=== PATIENT | female | born 1965 | race African-American/Black ===

== ENCOUNTER 2019-05-29 08:58 | Inpatient (IN) ==
[2019-05-29] MEDS: NS 1,000 ML IV SCH ×3 (09:00→12:32)
[2019-05-29] MEDS ORDERED: ASPIRIN PO ONE (09:10)
[2019-05-29] MEDS ORDERED: NS 1,000 ML IV ONE (09:15)
[2019-05-29 09:20] LABS: BE -28.8 mmoll (-3.0-3.0); BLOOD TYPE ARTERIAL; METHB 0.9 % (0.0-1.5); O2(CT) 20.8 mL/dL (15.0-23.0); PO2(98.6) 143 mmHg (60-100); SAMPLE BLOOD; SAO2 99.5 % (95.0-100.0); THB 15.1 g/dL (11.5-17.4)
[2019-05-29 09:24] LABS: BASO# 0.01 X1000 (0.0-0.2); BASO% 0.1 % (0.0-0.8); EOS# 0.01 X1000 (0.0-0.7); EOS% 0.1 % (0.0-10.0); HEMATOCRIT 45.7 % (37.0-47.0); HEMOGLOBIN 14.3 g/dL (12.0-16.0); IMM GRAN# 0.09 X1000 (0.0-0.04); IMM GRAN% 0.6 % (0.0-0.5); LYMPH# 1.53 X1000 (1.2-3.4); MCH 22.8 PG (27-31); MCHC 31.3 g/dL (33-37); MCV 72.8 FL (81-99); MONO# 0.93 X1000 (0.11-0.59); MONO% 6.7 % (1.7-9.3); MPV 10.5 FL (7.4-10.4); NEUT# 11.32 X1000 (1.4-6.5); NEUT% 81.5 % (42.2-75.2); PLT 476 X1000 (130-400); RBC 6.28 XMIL (4.2-5.4); RDW 14.1 % (11.5-14.5); WBC 13.89 X1000 (4.8-10.8)
--- NOTE | 2019-05-29 09:25 | PROVIDER DOCUMENTATION ---
HPI-General Adult - General Chief Complaint: Chest Pain Stated Complaint: SOB/N/V Time Seen by Provider: 05/29/19 09:10 Source: patient Allergies/Adverse Reactions: Patient Allergies Allergy/AdvReac Type Severity Reaction Status Date / Time No Known Allergies Allergy Verified 05/29/19 09:49 Home Medications: Home Medication List Medication Instructions Recorded Confirmed Last Taken Type NK [No Home Medications] 05/29/19 05/29/19 Unknown History - History of Present Illness -Gen Adult Nature of Presenting Problems: 53yof present to ER with c/o high blood sugar, nv, SOB, and chest pain. Pt is a diabetic and states her blood sugar has been elevated. Pt poor historian. Location of Pain/Injury: reports: chest Pain Radiation: reports: no radiation Quality of Pain: reports: aching Onset/Duration: reports: last night Modifying Factors: improves with: nothing Associated Symptoms: reports: chest pain, nausea, shortness of breath, vomiting. denies: diaphoresis, diarrhea, dizziness, fever/chills, genitourinary problems - Diabetes Related Context Context: reports: high blood sugar, prior DKA hospitalization Review of Systems - Adult - REVIEW OF SYSTEMS - ADULT Constitutional: reports: no symptoms reported. denies: chills, fever Eyes: reports: no symptoms reported Ears, Nose, Mouth & Throat: reports: no symptoms reported Cardiovascular: reports: see HPI, chest pain Respiratory: reports: see HPI, shortness of breath Gastrointestinal: reports: see HPI, nausea, vomiting. denies: abdominal pain, diarrhea Genitourinary: reports: no symptoms reported. denies: dysuria, frequency Musculoskeletal: reports: no symptoms reported Integumentary: reports: no symptoms reported Neurological: reports: no symptoms reported Psychiatric: reports: no symptoms reported Endocrine: reports: no symptoms reported Hematologic/Lymphatic: reports: no symptoms reported Allergic/Immunologic: reports: no symptoms reported All Other Systems: Reviewed and Negative Past History - Adult - PAST MEDICAL HISTORY-ADULT Review of Records: reports: Old Records Reviewed, Nursing Assessment Review, Medications Reviewed, Social history reviewed & non-contributory. Major Childhood Illnesses: reports: denies history Cardiovascular: reports: HTN, hyperlipidemia Respiratory: reports: denies history Gastrointestinal: reports: denies history Obstetrical/Gynecological: reports: denies history Genitourinary: reports: denies history Musculoskeletal: reports: denies history Neurological: reports: denies history Endocrine/Immune: reports: Diabetes Other Conditions: reports: denies history - FAMILY HISTORY Family History: reviewed, not pertinent Physical Exam-General - PHYSICAL EXAM-ADULT Initial Vital Signs Reviewed: Yes - CONSTITUTIONAL General Appearance: alert, moderate distress, other (fruity acetone odor) - EYES Eyes: pink conjunctivae - HEAD, EARS, NOSE, MOUTH & THROAT HENMT: other (dry mucous membranes). negative: angioedema - NECK Neck: full range of motion, supple, normal inspection - RESPIRATORY Respiratory: lungs clear, normal breath sounds, increased rate (kussmaul). negative: crackles, rales, rhonchi, stridor, wheezing - CARDIOVASCULAR Cardiovascular: tachycardia - GASTROINTESTINAL (ABDOMEN) Abdominal Exam: normal bowel sounds, non tender, soft. negative: distended, guarding, rigid, rebound - LYMPHATIC Lymphatic: no adenopathy - MUSCULOSKELETAL Back Exam: normal inspection, no vertebral tenderness Extremity: normal range of motion, normal inspection, no pedal edema, normal capillary refill - SKIN Integumentary: normal color, warm/dry. negative: diaphoresis, jaundice - PSYCHIATRIC Psych/Mental Status: oriented x 3, anxious Progress - PLAN OF CARE/RESULTS Progress/Plan/Lab Results: Vital Signs - 8 hr 05/29/19 09:04 Pulse Rate 117 H Respiratory Rate 24 Blood Pressure 145/106 O2 Sat by Pulse Oximetry 99 Laboratory Results - last 24 hr 05/29/19 09:11 POC Glucose 500 H Orders Category Date Time Status Cardiac Monitoring DIRECTED Care 05/29/19 09:10 Active FSBS [Finger Stick Blood Sugar (ED)] DIRECTED Care 05/29/19 09:12 Active FSBS/Accucheck Result Q1H Care 05/29/19 09:15 Ordered Zaragoza Cath Insertion ORDERED Care 05/29/19 09:12 Active Oxygen Therapy- ED Nursing DIRECTED Care 05/29/19 09:10 Active Saline Loc NOW Care 05/29/19 09:10 Active Vital Signs Order Q1H Care 05/29/19 09:15 Ordered CHEST-2 VIEWS [RAD] Stat Exams 05/29/19 09:10 Ordered ABG [RESP] Routine Lab 05/29/19 09:13 Ordered ABG [RESP] Stat Lab 05/29/19 09:15 Ordered ACETONE SERUM [CHEM] Stat Lab 05/29/19 09:15 Uncollected CBC WITH ELECTRONIC DIFF [HEME] Stat Lab 05/29/19 09:15 Ordered CK PROFILE [SP CHEM] Stat Lab 05/29/19 09:15 Ordered COMPREHENSIVE METABOLIC PANEL [CHEM] Stat Lab 05/29/19 09:15 Ordered LACTATE, PLASMA [CHEM] Stat Lab 05/29/19 09:15 Uncollected MAGNESIUM [CHEM] Stat Lab 05/29/19 09:15 Uncollected PHOSPHORUS [CHEM] Stat Lab 05/29/19 09:15 Uncollected PRO B-NATRIURETIC PEPTIDE Stat Lab 05/29/19 09:15 Ordered PROTIME WITH INR [COAG] Stat Lab 05/29/19 09:15 Ordered PTT [COAG] Stat Lab 05/29/19 09:15 Ordered TROPONIN T Stat Lab 05/29/19 09:15 Ordered UA [URINALYSIS W/POSS RFLX CULT] [URINALYSIS] Stat Lab 05/29/19 09:13 Uncollected URINALYSIS [URINALYSIS] Stat Lab 05/29/19 09:15 Uncollected URINE DRUG SCREEN PL Stat Lab 05/29/19 09:15 Uncollected 0.9% Sodium Chloride Inj [Ns] 1,000 ml Med 05/29/19 09:15 Ordered IV 500 mls/hr Aspirin Med 05/29/19 09:10 Discontinued 325 mg PO NOW ONE Ns 1000 ml IV Bolus X1 Med 05/29/19 09:15 Ordered 0.9% Sodium Chloride Inj [Ns] 1,000 ml IV 999 mls/hr CP/SOB/Palp >45 yrs of Age Stat Oth 05/29/19 09:10 Ordered EKG [EKG] Stat Ther 05/29/19 09:10 Ordered Result Diagrams: 05/29/19 09:10 05/29/19 09:10 - REASSESSMENT Reassessment #1 Time Reassessed: 09:25 (reviewed ABGs with Dr Moses. Does not suggest any new orders at this time, suggests bolusing with fluids until CMP is back) - XRAY 1 XRAY Study: Chest Impression: See EMR Report ( CHEST-PORTABLE - 05/29/2019 INDICATION: cp COMPARISON: None FINDINGS: The lungs are normally expanded and clear. Heart size and mediastinal contours are normal. No pneumothorax or pleural effusion. IMPRESSION: Negative exam. Electronically signed by Leandro Knutson 05/29/2019 10:00 AM) - CONSULTS/PCP/HOSPITALIST Notification #1 *Consult/PCP/Hospitalist*: Dr Mancia Time Discussed: 10:23 Consult Disposition: Will see in ED, Admit Departure - Departure Date of Disposition Decision: 05/29/19 Time of Disposition Decision: 10:23 DIAGNOSIS: DKA (diabetic ketoacidoses) Disposition: ADMITTED INPATIENT 09 Certified Medical Emergency: Emergent Condition: Fair Referrals and Follow-Ups: None,PCP [Primary Care Provider] - - Critical Care Note This patient required my direct & personal management of CC.: Yes Total Time (mins): 40 Critical Care Statement: This patient required my direct personal management to treat or rule out processes, the absence of which, could potentiallly result in sudden, clinically significant life or limb threatening deterioration. Attestation - Physician/ REBEKAH Attestation Patient care was provided by Advanced Practice Provider:: Yes Advanced Practice Provider:: Lupis Dillon Advanced Practice Provider documentation review:: The Mid-level provider documentation, treatment plan and medical decision making was reviewed by the physician who agrees with all treatment and medical decision making by the MLP. The physician spent face to face time with patient:: Yes Advanced Practice Provider documentation review:: Supervising physician onsite and consulted in the evaluation and care of this patient. The physician did have a face to face encounter with the patient. - HEART Score HEART Score: History: Slightly Suspicious HEART Score: ECG: Normal HEART Score: Age: 45-65 Years HEART Score: Risk Factors for Atherosclerotic Disease: > or = 3 Risk Factors or History of Atherosclerotic Disease HEART Score: Troponin: < or = Normal Limit Total HEART Score:: 3
[2019-05-29 09:31] LABS: URINE SOURCE CATH
[2019-05-29 09:34] LABS: BILIRUBIN URINE NEGATIVE (NEGATIVE); BLOOD URINE SMALL (NEGATIVE); COLOR YELLOW; GLUCOSE URINE >1000 mg/dL (NEGATIVE); KETONE URINE >150 mg/dL (NEGATIVE); LEUKOCYTES URINE NEGATIVE (NEGATIVE); NITRITE URINE NEGATIVE (NEGATIVE); PROTEIN URINE 70 mg/dL (NEGATIVE); SP GRAVITY URINE 1.025; TURBIDITY URINE CLEAR (CLEAR); UR EPITHELIAL CELLS <10 /HPF (<10); URINE BACTERIA NEGATIVE /HPF; URINE RBC <10 /HPF (<10); URINE WBC <10 /HPF (<10); UROBILINOGEN URINE NORMAL (NORMAL)
[2019-05-29 09:38] LABS: INR 1.15; PROTIME 15.3 Seconds (11.0-16.0)
[2019-05-29 09:39] LABS: ALBUMIN 4.5 g/dL (3.5-5.0); CALCIUM 9.6 mg/dL (8.8-10.2); CREATININE 1.4 mg/dL (0.5-0.9); POTASSIUM 5.2 mmol/L (3.5-5.1); PTT 28.1 Seconds (22.3-41.8); TOTAL BILIRUBIN 0.3 mg/dL (0.20-1.00); TOTAL PROTEIN 7.9 g/dL (6.3-8.3)
[2019-05-29 09:42] LABS: ALLEN TEST YES; MODALITY ROOM AIR
--- NOTE | 2019-05-29 09:44 | EKG Report ---
Test Performed on : 05/29/2019 09:10:20 AM Test Reason : SOB/C/P Blood Pressure : / mmHG Vent. Rate : 116 BPM Atrial Rate : 116 BPM P-R Int : 140 ms QRS Dur : 076 ms QT Int : 364 ms P-R-T Axes : 078 -26 035 degrees QTc Int : 505 ms Sinus tachycardia. Possible Left atrial enlargement Inferior infarct , age undetermined Abnormal ECG No previous ECGs available Unconfirmed Result
[2019-05-29 09:49] LABS: UR AMPHETAMINES QUAL NONE DETECTED (NONE DETECT); UR BARBITUATES QUAL NONE DETECTED (NONE DETECT); UR BENZODIAZEPIN QUAL NONE DETECTED (NONE DETECT); UR CANNABINOIDS QUAL NONE DETECTED (NONE DETECT); UR COCAINE QUAL NONE DETECTED (NONE DETECT); UR METHADONE QUAL NONE DETECTED (NONE DETECT); UR METHAMPHETAMINE QUAL NONE DETECTED (NONE DETECT); UR OPIATES QUAL NONE DETECTED (NONE DETECT); UR OXYCODONE QUAL NONE DETECTED (NONE DETECT); UR PCP QUAL NONE DETECTED (NONE DETECT); UR PROPOXYPHENE QUAL NONE DETECTED (NONE DETECT); UR TCA QUAL NONE DETECTED (NONE DETECT)
[2019-05-29 09:54] LABS: ACETONE SERUM LARGE (NEGATIVE)
[2019-05-29 09:55] LABS: MAGNESIUM 2.6 mg/dL (1.5-2.7); PHOSPHORUS 6.5 mg/dL (2.7-4.5)
[2019-05-29] MEDS ORDERED: HUMULIN R (PARKWAY) 100 UNITS in NS 100 ML IV SCH (10:00)
--- NOTE | 2019-05-29 10:02 | Diag Imaging Result Doc PS360 ---
CHEST-PORTABLE - 05/29/2019 INDICATION: cp COMPARISON: None FINDINGS: The lungs are normally expanded and clear. Heart size and mediastinal contours are normal. No pneumothorax or pleural effusion. IMPRESSION: Negative exam. Electronically signed by Leandro Knutson 05/29/2019 10:00 AM
[2019-05-29] MEDS ORDERED: SODIUM BICARBONATE 8.4% IV PUSH ONE (10:12)
[2019-05-29 10:22] LABS: PCO2(98.6) 7 mmHg (35-45); pH(98.6) 6.95 (7.35-7.45)
[2019-05-29 10:23] LABS: HCO3-(ACT) 2.4 mmoll (20.0-26.0)
[2019-05-29] MEDS ORDERED: ZOFRAN PO PRN (12:03)
[2019-05-29] MEDS ORDERED: COMPAZINE PO PRN (12:03)
[2019-05-29] MEDS ORDERED: HUMULIN R 100 UNIT in NS 100 ML IV SCH (12:03)
[2019-05-29] MEDS ORDERED: POTASSIUM CHLORIDE 20 MEQ/SWI 20 MEQ/100 ML IVPB IV PRN (12:03)
[2019-05-29] MEDS ORDERED: POTASSIUM CHLORIDE 40 MEQ/SWI 40 MEQ/100 ML IVPB IV PRN (12:03)
[2019-05-29] MEDS ORDERED: TYLENOL PR PRN (12:03)
[2019-05-29] MEDS ORDERED: D50W SYRINGE IV PRN (12:03)
[2019-05-29] MEDS ORDERED: TYLENOL PO PRN (12:03)
[2019-05-29] MEDS ORDERED: COMPAZINE PR PRN (12:03)
[2019-05-29] MEDS ORDERED: COMPAZINE IV PRN (12:03)
[2019-05-29] MEDS ORDERED: SODIUM BICARBONATE 8.4% 100 MEQ in STERILE WATER INJ. 500 ML IV PRN (12:03)
[2019-05-29] MEDS ORDERED: MAGNESIUM SULFATE 2 GM/S.W.I. 2 GM/50 ML IVPB IV PRN (12:03)
--- NOTE | 2019-05-29 13:02 | HISTORY AND PHYSICAL ---
PRIMARY CARE PROVIDER: GABRIELLE Tidwell. CHIEF COMPLAINT: "I feel SOB" HISTORY OF PRESENT ILLNESS: Ms. Matias is a 53-year-old, female who carries a past medical history of diabetes mellitus type 2, who had previously been on, I believe, Januvia and metformin, hypertension, hyperlipidemia. However, she has not taken any home medications in quite some time, at least in over a year. She does not take her blood sugars at home. She states that she lost over 100 pounds so she thought she was not a diabetic anymore. She is complaining of some shortness of breath. She does have Kussmaul breathing. Workup in the ED revealed she was in DKA and will be initiated on the DKA protocol, and will be transferred to [facility] ICU. Her infectious workup has been negative so far. Ms. Matias is not forthcoming with much information and feels like we are being very mean to her with our questioning and educating on importance of staying of top of her diabetes. PAST MEDICAL HISTORY: 1. Diabetes mellitus. 2. Hypertension. 3. Hyperlipidemia. PAST SURGICAL HISTORY: Denies. FAMILY HISTORY: Reviewed and noncontributory. ALLERGIES: No known drug allergies. HOME MEDICATIONS: Currently not taking any. REVIEW OF SYSTEMS: Hard to obtain secondary to the patient is not very forthcoming with information. She does have fruity-smelling breath. She does have Kussmaul breathing but really denies any other symptoms. She just keeps saying that she does not feel bad, that she is just short of breath. Intentional 100 pound weight loss. PHYSICAL EXAMINATION: VITAL SIGNS: Temperature is 97.6 degrees, heart rate 103, respirations 20, blood pressure 145/106, O2 is 99% on room air. GENERAL: Ms. Matias is a 53-year-old, female who is lying in the bed with Kussmaul respirations. HEENT: Atraumatic, normocephalic. PERRL. Mucous membranes are extremely dry. NECK: Supple. Trachea midline. CARDIOVASCULAR: S1, S2 appreciated. No murmurs, gallops, or rubs noted. RESPIRATORY: Lungs sound clear bilaterally. GI: Flat, soft, nontender, nondistended. Positive bowel sounds in 4 quadrants. EXTREMITIES: Lower extremities negative for edema. Bilateral pedal pulses are palpable. NEUROLOGIC: The patient is awake. She is alert. She is answering some questions. She is moving all her extremities. She is talking to her family member at the bedside. However, again, she is being difficult in answering all of our questions. She is definitely a poor historian. DIAGNOSTIC DATA: EKG, sinus tachycardia with possible left atrial enlargement, 116 beats per minute. Chest x-ray was a negative exam. LABORATORY DATA: White count 13, hemoglobin and hematocrit 14 and 45, platelet count is 476,000. Initial ABG, pH was 6.95, pCO2 of 7, PO2 of 143, bicarb of 2.4, base excess of - 28.8, O2 of 99.5. Sodium of 131, potassium of 5.2, BUN of 31, creatinine 1.4, blood glucose of 682, phosphorus of 6.5, magnesium of 2.6. Alkaline phosphatase of 111. Troponin less than 0.010. Plasma lactate of 5.1. Urinalysis negative for bacteria, negative for nitrites, small blood, greater than 1000 glucose, 70 protein. Acetone level is large. Toxicology screen negative. ASSESSMENT AND PLAN: 1. Diabetic ketoacidosis in a patient with known diabetes mellitus. She reports she has had admissions before in [place] for diabetic ketoacidosis. She reports a weight loss of over 100 pounds and thought she was not diabetic anymore. She does not check her blood sugars at home. She has not taken her metformin or Januvia for months now. She has been initiated on the diabetic ketoacidosis protocol and will be transferred from [place] emergency department to [facility] intensive care unit to continue with further treatment and care. 2. Hypertension. We will continue to monitor. 3. Hyperlipidemia. 4. Leukocytosis, likely reactive. Infectious workup has turned up negative so far. 5. FLORESITA secondary to dehydration. Further recommendations to follow Physicians evaluation, labs, and diagnostics. Dictated by GABRIELLE Rodriguez for Seven Duff MD cc: MD Tamiko Reyes [facility]
--- NOTE | 2019-05-29 13:23 | HISTORY AND PHYSICAL ---
ADDENDUM: HISTORY OF PRESENT ILLNESS: The patient is a 53-year-old, extremely intentionally noncompliant individual, who notes that she has not been taking her blood sugar medications for several months, does not check her blood sugars at home. States she has been short of breath. Denies any fevers or chills. PAST MEDICAL HISTORY: Significant for hypertension, diabetes, hyperlipidemia. HOSPITAL COURSE: The patient was seen in the ER with elevated blood pressure of 145/106, tachycardic at 117, tachypneic at 24. She is acidotic with a bicarb at 3. Sodium 131, potassium 5.2, and glucose at 682. When attempting to discuss with Ms. Matias, the importance of blood sugar control, she simply continues to remark, it is not a big deal, she has been sicker than this in the past. She also notes that I should not be so mean as to tell her that uncontrolled diabetes leads to chronic intractable pain in your feet and legs, kidney failure, blindness, and ultimately an early . Regardless, we are going to place her in the hospital ICU, insulin drip. We are going to give her some bicarb currently, place her on IV fluids, and will follow. cc: Seven Duff MD
[2019-05-29] MEDS: ZOFRAN IV PRN (13:41)
[2019-05-29 13:51] LABS: CALCIUM 8.2 mg/dL (8.8-10.2); CREATININE 1.2 mg/dL (0.5-0.9); PHOSPHORUS 2.6 mg/dL (2.7-4.5); POTASSIUM 4.9 mmol/L (3.5-5.1)
[2019-05-29] MEDS: POTASSIUM CHLORIDE 10% LIQUID PO PRN ×2 (14:05→16:53)
[2019-05-29 14:50] LABS: ALLEN TEST YES; BE -21.4 mmoll (-3.0-3.0); BLOOD TYPE ARTERIAL; HCO3-(ACT) 8.2 mmoll (20.0-26.0); METHB 0.7 % (0.0-1.5); O2(CT) 17.7 mL/dL (15.0-23.0); O2HB 97.1 % (95.0-99.0); PO2(98.6) 105 mmHg (60-100); SAMPLE BLOOD; SAO2 99.2 % (95.0-100.0); THB 12.9 g/dL (11.5-17.4)
[2019-05-29 14:51] LABS: MODALITY ROOM AIR; PCO2(98.6) 14 mmHg (35-45); pH(98.6) 7.16 (7.35-7.45)
[2019-05-29 16:33] LABS: ESTIMATED GFR > 60
[2019-05-29 16:39] LABS: AGAP 25; BUN 24 mg/dL (8-22); CHLORIDE 103 mmol/L (98-107); COSMO 279; GLUCOSE 218 mg/dL (70-104); PHOSPHORUS 1.3 mg/dL (2.7-4.5); POTASSIUM 4.3 mmol/L (3.5-5.1); SODIUM 134 mmol/L (136-145); TCO2 6 mmol/L (25-35)
[2019-05-29] MEDS: SODIUM CHLORIDE 0.9% INJ SCH (16:53)
[2019-05-29] MEDS: PROTONIX IV SCH (16:53)
[2019-05-29] MEDS: D5 NS 1,000 ML IV PRN (16:58)
[2019-05-29] MEDS: HEPARIN SUBQ SCH (20:02)
[2019-05-29 20:48] LABS: AGAP 19; BUN 18 mg/dL (8-22); CALCIUM 7.8 mg/dL (8.8-10.2); CHLORIDE 105 mmol/L (98-107); COSMO 277; CREATININE 0.9 mg/dL (0.5-0.9); ESTIMATED GFR > 60; GLUCOSE 222 mg/dL (70-104); POTASSIUM 4.5 mmol/L (3.5-5.1); SODIUM 134 mmol/L (136-145); TCO2 10 mmol/L (25-35)
[2019-05-29 20:49] LABS: PHOSPHORUS 0.7 mg/dL (2.7-4.5)
[2019-05-29] MEDS ORDERED: SODIUM PHOSPHATE 30 MMOL in NS 250 ML IV ONE (21:11)
[2019-05-29] MEDS ORDERED: BLISTEX MEDICATED BERRY LIP BALM TOP PRN (21:18)
[2019-05-29] MEDS: SODIUM PHOSPHATE 30 MMOL in D5W 250 ML IV PRN (21:22)
[2019-05-30] MEDS: D5 NS 1,000 ML IV PRN ×4 (01:11→22:55)
[2019-05-30 01:33] LABS: AGAP 15; BUN 16 mg/dL (8-22); CHLORIDE 106 mmol/L (98-107); COSMO 273; ESTIMATED GFR > 60; GLUCOSE 229 mg/dL (70-104); MAGNESIUM 1.8 mg/dL (1.5-2.7); PHOSPHORUS 1.4 mg/dL (2.7-4.5); POTASSIUM 3.2 mmol/L (3.5-5.1); SODIUM 132 mmol/L (136-145); TCO2 11 mmol/L (25-35)
[2019-05-30] MEDS: NS 1,000 ML IV SCH ×4 (02:21→19:12)
[2019-05-30] MEDS: POTASSIUM CHLORIDE 20% LIQUID PO PRN ×2 (03:43→06:31)
[2019-05-30 04:56] LABS: MAGNESIUM 1.7 mg/dL (1.5-2.7); PHOSPHORUS 1.6 mg/dL (2.7-4.5)
[2019-05-30 04:57] LABS: HEMOGLOBIN A1C 15.5 % (4.8-6.0)
[2019-05-30 04:59] LABS: ESTIMATED GFR > 60
[2019-05-30 05:07] LABS: AGAP 15; BUN 13 mg/dL (8-22); CALCIUM 7.8 mg/dL (8.8-10.2); CHLORIDE 112 mmol/L (98-107); COSMO 286; CREATININE 0.9 mg/dL (0.5-0.9); GLUCOSE 252 mg/dL (70-104); POTASSIUM 3.3 mmol/L (3.5-5.1); SODIUM 139 mmol/L (136-145); TCO2 12 mmol/L (25-35)
[2019-05-30 05:46] LABS: ALLEN TEST YES; BE -11.5 mmoll (-3.0-3.0); BLOOD TYPE ARTERIAL; HCO3-(ACT) 15.9 mmoll (20.0-26.0); METHB 1.1 % (0.0-1.5); O2(CT) 17.5 mL/dL (15.0-23.0); O2HB 95.6 % (95.0-99.0); PCO2(98.6) 26 mmHg (35-45); PO2(98.6) 104 mmHg (60-100); SAMPLE BLOOD; SAO2 98.7 % (95.0-100.0); THB 12.9 g/dL (11.5-17.4); pH(98.6) 7.31 (7.35-7.45)
[2019-05-30 05:47] LABS: MODALITY ROOM AIR
--- NOTE | 2019-05-30 07:29 | Diag Imaging Result Doc PS360 ---
EXAM: CHEST-PORTABLE HISTORY: follow up TECHNIQUE: Single view COMPARISON: 05/29/2019 FINDINGS: The lungs are well expanded. The heart is not enlarged. The vessels are not distended. There are no infiltrates. No effusion identified. IMPRESSION: Negative exam. Electronically signed by Demarcus Joy 05/30/2019 7:27 AM
[2019-05-30] MEDS: HEPARIN SUBQ SCH ×2 (08:16→20:58)
[2019-05-30 08:27] LABS: MAGNESIUM 2.4 mg/dL (1.5-2.7)
[2019-05-30 08:42] LABS: AGAP 15; BUN 11 mg/dL (8-22); CALCIUM 8.1 mg/dL (8.8-10.2); CHLORIDE 114 mmol/L (98-107); COSMO 287; CREATININE 0.8 mg/dL (0.5-0.9); ESTIMATED GFR > 60; GLUCOSE 213 mg/dL (70-104); POTASSIUM 4.3 mmol/L (3.5-5.1); SODIUM 141 mmol/L (136-145); TCO2 12 mmol/L (25-35)
[2019-05-30 08:46] LABS: PHOSPHORUS 0.8 mg/dL (2.7-4.5)
[2019-05-30] MEDS: POTASSIUM CHLORIDE 10% LIQUID PO PRN ×4 (09:08→21:08)
[2019-05-30] MEDS: SODIUM PHOSPHATE 30 MMOL in D5W 250 ML IV PRN (09:40)
--- NOTE | 2019-05-30 10:58 | PROGRESS NOTE ---
DATE: 05/30/2019 INTERVAL HISTORY: Ms. Matias was admitted for diabetic ketoacidosis. Overnight, she was resuscitated with intravenous fluids and intravenous insulin. In the morning time, her electrolytes, basic metabolic panel, and ABG are improving. SUBJECTIVE: Ms. Matias states she is feeling better than before. She denies any vomiting. She denies abdominal cramps. She is passing gas and feeling gaseous. She has some nausea. We had a discussion about her improving blood picture. We had a discussion about uncontrolled diabetes and I answered all of her questions. VITALS: Temperature 98.3 degrees, pulse 91, respiratory rate 16, blood pressure 140/79, saturating 100% on room air. PHYSICAL EXAMINATION: She is overweight. Not in any acute distress. Oral cavity is dry. Lungs: Air entry bilaterally equal. No wheeze, rhonchi, or crackles. Cardiovascular: S1, S2 normal. Not tachycardic. No murmur, rub, or gallop. Regular rate, regular rhythm. Abdomen: Soft. No hepatosplenomegaly. Bowel sounds heard in all quadrants. No tenderness. No lower extremity edema. She has a urine catheter that I discussed with the nurse to discontinue. She is alert and oriented x3. LABS: Her CBC has not been drawn today. She had mild leukocytosis yesterday. Her pH is improving to 7.31, her bicarbonate is 12. Her acute kidney injury has resolved. She is getting repletion for her potassium, according to electrolyte repletion protocol. MICROBIOLOGY: Blood cultures are in lab. IMAGING: Chest x-ray imaging did not have any acute cardiopulmonary process. ASSESSMENT AND PLAN: 1. Diabetic ketoacidosis in the setting of noncompliance with diabetes medications since 1 year. Continue the patient on intravenous fluids and intravenous insulin, along with electrolytes according to diabetic ketoacidosis protocol. Follow up BMP. Accordingly, I will consider switching her from intravenous to subcutaneous insulin and starting her on a diet. 2. Acute kidney injury and lactic acidosis on presentation, likely because of diabetic ketoacidosis. After intravenous fluids, her acute kidney injury has resolved. 3. History of essential hypertension and hyperlipidemia. Her blood pressure is currently within acceptable range so I will hold any antihypertensive medication. We will give her as needed intravenous medication. 4. Deep venous thrombosis prophylaxis. Heparin subcutaneous. 5. Disposition. The patient's diabetic ketoacidosis is improving. However, she does have mild acidosis. I will monitor patient inside the intensive care unit for another 24 hours. Plan of care discussed with her. Her questions have been answered. cc: Vic López MD
[2019-05-30 12:46] LABS: ESTIMATED GFR > 60
[2019-05-30 12:55] LABS: MAGNESIUM 2.2 mg/dL (1.5-2.7); PHOSPHORUS 1.4 mg/dL (2.7-4.5)
[2019-05-30 12:58] LABS: AGAP 14; BUN 8 mg/dL (8-22); CHLORIDE 114 mmol/L (98-107); COSMO 286; CREATININE 0.7 mg/dL (0.5-0.9); GLUCOSE 179 mg/dL (70-104); SODIUM 142 mmol/L (136-145); TCO2 14 mmol/L (25-35)
[2019-05-30] MEDS: SODIUM CHLORIDE 0.9% INJ SCH (16:37)
[2019-05-30] MEDS: PROTONIX IV SCH (16:37)
[2019-05-30 16:56] LABS: MAGNESIUM 2.1 mg/dL (1.5-2.7); PHOSPHORUS 1.6 mg/dL (2.7-4.5)
[2019-05-30 16:59] LABS: ESTIMATED GFR > 60
[2019-05-30 17:04] LABS: AGAP 16; BUN 7 mg/dL (8-22); CALCIUM 8.1 mg/dL (8.8-10.2); CHLORIDE 115 mmol/L (98-107); COSMO 286; CREATININE 0.7 mg/dL (0.5-0.9); GLUCOSE 94 mg/dL (70-104); POTASSIUM 3.7 mmol/L (3.5-5.1); SODIUM 145 mmol/L (136-145); TCO2 14 mmol/L (25-35)
[2019-05-30 20:54] LABS: PHOSPHORUS 1.3 mg/dL (2.7-4.5)
[2019-05-30 21:00] LABS: AGAP 13; BUN 5 mg/dL (8-22); CALCIUM 7.7 mg/dL (8.8-10.2); CHLORIDE 114 mmol/L (98-107); COSMO 285; CREATININE 0.8 mg/dL (0.5-0.9); ESTIMATED GFR > 60; GLUCOSE 146 mg/dL (70-104); POTASSIUM 3.6 mmol/L (3.5-5.1); SODIUM 143 mmol/L (136-145); TCO2 16 mmol/L (25-35)
[2019-05-31 00:56] LABS: MAGNESIUM 1.9 mg/dL (1.5-2.7); PHOSPHORUS 1.4 mg/dL (2.7-4.5)
[2019-05-31 01:00] LABS: AGAP 12; BUN 4 mg/dL (8-22); CALCIUM 7.7 mg/dL (8.8-10.2); CHLORIDE 111 mmol/L (98-107); COSMO 277; CREATININE 0.7 mg/dL (0.5-0.9); ESTIMATED GFR > 60; GLUCOSE 136 mg/dL (70-104); POTASSIUM 3.5 mmol/L (3.5-5.1); SODIUM 139 mmol/L (136-145); TCO2 16 mmol/L (25-35)
[2019-05-31] MEDS: POTASSIUM CHLORIDE 10% LIQUID PO PRN ×2 (01:11→04:40)
[2019-05-31 04:26] LABS: MAGNESIUM 1.8 mg/dL (1.5-2.7); PHOSPHORUS 1.5 mg/dL (2.7-4.5)
[2019-05-31 04:27] LABS: BASO# 0.02 X1000 (0.0-0.2); BASO% 0.3 % (0.0-0.8); EOS# 0.02 X1000 (0.0-0.7); EOS% 0.3 % (0.0-10.0); HEMATOCRIT 30.6 % (37.0-47.0); HEMOGLOBIN 9.8 g/dL (12.0-16.0); IMM GRAN# 0.03 X1000 (0.0-0.04); IMM GRAN% 0.4 % (0.0-0.5); LYMPH# 2.62 X1000 (1.2-3.4); LYMPH% 36.9 % (20.5-51.1); MCH 22.6 PG (27-31); MCV 70.5 FL (81-99); MONO# 0.77 X1000 (0.11-0.59); MONO% 10.8 % (1.7-9.3); MPV 9.6 FL (7.4-10.4); NEUT# 3.64 X1000 (1.4-6.5); NEUT% 51.3 % (42.2-75.2); PLT 276 X1000 (130-400); RBC 4.34 XMIL (4.2-5.4); RDW 14.1 % (11.5-14.5)
[2019-05-31 04:29] LABS: AGAP 12; BUN 4 mg/dL (8-22); CALCIUM 7.7 mg/dL (8.8-10.2); CHLORIDE 115 mmol/L (98-107); COSMO 280; CREATININE 0.6 mg/dL (0.5-0.9); ESTIMATED GFR > 60; GLUCOSE 97 mg/dL (70-104); POTASSIUM 3.5 mmol/L (3.5-5.1); SODIUM 142 mmol/L (136-145); TCO2 15 mmol/L (25-35)
[2019-05-31] MEDS: NS 1,000 ML IV SCH ×3 (07:02→22:06)
[2019-05-31] MEDS ORDERED: LEVEMIR SUBQ ONE (08:31)
[2019-05-31] MEDS ORDERED: HUMULIN N SUBQ ONE (08:32)
[2019-05-31] MEDS: HUMULIN R SUBQ SCH ×4 (08:44→20:42)
[2019-05-31] MEDS: HEPARIN SUBQ SCH ×2 (08:48→20:41)
[2019-05-31] MEDS: PRINIVIL PO SCH (08:48)
[2019-05-31] MEDS ORDERED: SODIUM CHLORIDE 0.9% 10 ML ONE (16:35)
[2019-05-31] MEDS: PROTONIX IV SCH (16:35)
--- NOTE | 2019-05-31 19:24 | PROGRESS NOTE ---
DATE: 05/31/2019 SUBJECTIVE: The patient is resting comfortably in bed. She feels a lot better today. OBJECTIVE: Vital Signs: Temperature 98.4, blood pressure 120/80, heart rate 93, respirations 18, O2 saturation 100% on room air. General: This is an overweight female, lying in bed in no acute distress. Heart: S1, S2 normal. Regular rate and rhythm. Lungs: Clear to auscultation bilaterally. Abdomen: Positive bowel sounds. Soft, nontender, nondistended. Extremities: No edema, no cyanosis. Neurologic: The patient is alert and oriented x3. LABS: White blood cell count 7, hemoglobin 9.8, hematocrit 30, platelets 276. Sodium 142, potassium 3.5, chloride 115, CO2 15. BUN 4, creatinine 0.6, glucose 190, phosphorus 1.5. ASSESSMENT AND PLAN: 1. Diabetic ketoacidosis. Resolved. 2. Poorly controlled insulin-dependent diabetes mellitus. The patient will be started on long- acting insulin. She states that she has been on metformin for the last several years since her diagnosis. We will also cover the patient with sliding scale insulin. 3. Hypertension. We will start the patient on lisinopril. 4. Deep vein thrombosis prophylaxis. Continue on Lovenox. cc: Yelena Bush MD
[2019-05-31] MEDS: ZOFRAN IV PRN (20:41)
[2019-05-31] MEDS ORDERED: HUMULIN N SUBQ SCH (21:00)
[2019-05-31] MEDS ORDERED: SODIUM CHLORIDE 0.9% INJ PRN (23:42)
[2019-06-01] MEDS: SODIUM CHLORIDE 0.9% INJ SCH (00:04)
[2019-06-01] MEDS: PHENERGAN IV PRN ×2 (00:04→05:09)
[2019-06-01] MEDS: HUMULIN R SUBQ SCH ×6 (00:20→20:02)
[2019-06-01] MEDS: ZOFRAN IV PRN (02:38)
[2019-06-01 05:39] LABS: MCH 22.7 PG (27-31); MCHC 32.3 g/dL (33-37); MCV 70.5 FL (81-99); MPV 10.1 FL (7.4-10.4); RBC 4.4 XMIL (4.2-5.4); WBC 7.65 X1000 (4.8-10.8)
[2019-06-01 05:56] LABS: AGAP 15; BUN 5 mg/dL (8-22); CALCIUM 8.3 mg/dL (8.8-10.2); CHLORIDE 104 mmol/L (98-107); CHOLESTEROL 163 mg/dL (0-200); COSMO 280; CREATININE 0.6 mg/dL (0.5-0.9); ESTIMATED GFR > 60; GLUCOSE 223 mg/dL (70-104); HDL 32 mg/dL (45-65); LDL 103 mg/dL; MAGNESIUM 1.7 mg/dL (1.5-2.7); POTASSIUM 3.3 mmol/L (3.5-5.1); SODIUM 138 mmol/L (136-145); TCO2 19 mmol/L (25-35); TRIGLYCERIDES 141 mg/dL (35-135); VLDL 28 mg/dL
[2019-06-01 06:00] LABS: IRON SATURATION 22 %; TIBC 218 ug/dL; TOTAL IRON 48 ug/dL (49-151); UNBOUND IRON 170 ug/dL (112-346)
[2019-06-01 06:13] LABS: FERRITIN 1060 ng/mL (13-150)
[2019-06-01] MEDS ORDERED: POTASSIUM PHOSPHATE 50 MMOL in NS 250 ML IV ONE (06:39)
[2019-06-01] MEDS ORDERED: MAGNESIUM SULFATE 2 GM/S.W.I. 2 GM/50 ML IVPB IV ONE (06:39)
[2019-06-01] MEDS: HUMALOG SUBQ SCH ×2 (06:54→11:51)
--- NOTE | 2019-06-01 07:24 | Diag Imaging Result Doc PS360 ---
EXAM: FLAT/UPRIGHT ABD/1 VIEW CHEST - 06/01/2019 HISTORY: N/V,Abdominal Pain TECHNIQUE: Portable supine and upright abdomen one view chest COMPARISON: None. FINDINGS: The bowel gas pattern appears nonspecific and nonobstructive. There is no free air identified. Upright chest shows normal heart size. There is some tortuosity of the descending aorta. The lungs appear clear. There is no pleural effusion or pneumothorax seen. IMPRESSION: Nonspecific bowel gas pattern. No evidence of acute cardiopulmonary disease. Electronically signed by Richardson Gonzales 06/01/2019 7:22 AM
[2019-06-01] MEDS: HEPARIN SUBQ SCH ×2 (08:33→20:47)
[2019-06-01] MEDS: PRINIVIL PO SCH (08:33)
[2019-06-01] MEDS ORDERED: HUMULIN 70/30 SUBQ SCH (09:00)
[2019-06-01] MEDS ORDERED: HUMULIN N SUBQ SCH (09:00)
[2019-06-01] MEDS: HUMULIN 70/30 SUBQ SCH ×2 (09:43→20:44)
--- NOTE | 2019-06-01 14:29 | Diag Imaging Result Doc PS360 ---
EXAM: CHEST-PORTABLE - 06/01/2019 HISTORY: dyspnea TECHNIQUE: Portable chest COMPARISON: 06/01/2019 FINDINGS: Heart size is normal. The lungs appear clear. There is no pleural effusion or pneumothorax identified. IMPRESSION: No evidence of acute disease. Electronically signed by Richardson Gonzales 06/01/2019 2:26 PM
[2019-06-01] MEDS: ZOSYN 3.375 GM in NS 50 ML IV SCH ×2 (14:56→20:47)
[2019-06-01] MEDS: NS 1,000 ML IV SCH ×3 (14:57→23:21)
--- NOTE | 2019-06-01 15:06 | Diag Imaging Result Doc PS360 ---
EXAM: US ABDOMEN-COMPLETE - 06/01/2019 HISTORY: cholelithiasis TECHNIQUE: Ultrasound abdomen COMPARISON: None. FINDINGS: There is a shadowing gallstone in the gallbladder neck. There are a few additional small gallstones. Gallbladder quiroz are possibly mildly thickened. There is possibly small amount of pericholecystic fluid. The technologist reports positive sonographic Schwab's sign. The common bile duct is normal caliber at 4 mm. There are no abnormalities of the liver or spleen identified. Visualized portions of the pancreas are unremarkable. There is mild fullness of the left renal collecting system. There are no other abnormalities of the bilateral kidneys identified. Abdominal aorta and IVC appear normal caliber. IMPRESSION: Cholelithiasis. Mildly thickened gallbladder quiroz. Possible small amount of pericholecystic fluid. Early cholecystitis cannot be excluded. Normal caliber common bile duct at 4 mm. Mild fullness of left renal collecting system. Electronically signed by Richardson Gonzales 06/01/2019 3:04 PM
[2019-06-01 15:41] LABS: URINE SOURCE CLEAN CATCH
[2019-06-01 15:45] LABS: BILIRUBIN URINE NEGATIVE (NEGATIVE); BLOOD URINE NEGATIVE (NEGATIVE); COLOR STRAW; GLUCOSE URINE NEGATIVE (NEGATIVE); KETONE URINE 10 mg/dL (NEGATIVE); LEUKOCYTES URINE NEGATIVE (NEGATIVE); NITRITE URINE POSITIVE (NEGATIVE); PROTEIN URINE NEGATIVE (NEGATIVE); SP GRAVITY URINE 1.008; TURBIDITY URINE CLEAR (CLEAR); UROBILINOGEN URINE NORMAL (NORMAL)
[2019-06-01 15:46] LABS: UR EPITHELIAL CELLS <10 /HPF (<10); URINE BACTERIA 4+ /HPF; URINE RBC <10 /HPF (<10); URINE WBC <10 /HPF (<10)
--- NOTE | 2019-06-01 17:05 | PROGRESS NOTE ---
DATE: 06/01/2019 SUBJECTIVE: The patient states that she was vomiting all night and complains of right upper quadrant pain. She also had a fever of 100 early this morning. OBJECTIVE: Vital Signs: Temperature 98.9 degrees, blood pressure 108/65, heart rate 94, respirations 16, O2 saturations 100% on room air. General: This is an elderly female lying in bed in no acute distress. Heart: S1, S2 normal. Tachycardic. Lungs: Clear to auscultation bilaterally. No wheezing, no rales, no rhonchi. Abdomen: Positive bowel sounds. Soft, positive for right upper quadrant tenderness. Extremities: No edema, no cyanosis, no calf tenderness. Neuro: The patient is alert and oriented x4. LABS: Hemoglobin 10, hematocrit 31, platelets 306,000. Sodium 138, potassium 3.3, chloride 104, CO2 19, BUN 5, creatinine 0.6, glucose 99, phosphorus 1.9, calcium 8.3, magnesium 1.7. Abdominal ultrasound shows cholelithiasis with early cholecystitis. ASSESSMENT AND PLAN: 1. Possible acute cholecystitis with cholelithiasis We will continue with IV fluids. We will add Zosyn. We will consult with General Surgery for further recommendations. 2. Diabetic ketoacidosis. Resolved. 3. Poorly controlled insulin-dependent diabetes mellitus. The patient has a hemoglobin A1c of 15. We will continue on long-acting insulin, sliding scale insulin coverage. 4. Hypertension. Continue on lisinopril. 5. Deep vein thrombosis prophylaxis. Continue on Lovenox. cc: Yelena Bush MD MTDD
[2019-06-01 17:12] LABS: PHOSPHORUS 3.5 mg/dL (2.7-4.5); POTASSIUM 3.2 mmol/L (3.5-5.1)
[2019-06-01] MEDS ORDERED: POTASSIUM CHLORIDE 60 MEQ in NS 500 ML IV ONE (17:20)
[2019-06-01 17:30] LABS: ALB/GLOB RATIO 1.1; ALBUMIN 3.5 g/dL (3.5-5.0); DIRECT BILIRUBIN 0.2 mg/dL (0.00-0.20); TOTAL BILIRUBIN 0.62 mg/dL (0.20-1.00); TOTAL PROTEIN 6.6 g/dL (6.3-8.3)
--- NOTE | 2019-06-01 19:59 | GENERAL SURGERY CONSULTATION ---
DATE: 06/01/2019 REASON FOR CONSULTATION: Gallstones, possible cholecystitis. HPI: This is a 53-year-old female who was admitted approximately 72 hours ago for DKA. She has had episodes of this in the past. She has longstanding diabetes but does not really take her medication apparently, she was treated for this in ICU and overall this is done well. She was NPO for 2 days and she says she had a large meal yesterday evening and that left her nauseated couple episodes of vomiting and some discomfort associated with that. She said over the course of day today however symptoms resolved and she feels really well right now. She denies any fevers. She has not had any similar episodes of this in the past. She has also had low-grade fever of 100 but urinalysis obtained today was positive for nitrites. MEDICAL HISTORY: Diabetes, hypertension, hyperlipidemia. SURGICAL HISTORY: She has had diagnostic laparoscopy . FAMILY HISTORY: Reviewed noncontributory . REVIEW OF SYSTEMS: 10 point performed negative other mentioned HPI. MEDICATIONS: Were reviewed and she is not currently taking anything other than what is being given as inpatient. SOCIAL HISTORY: She denies any tobacco, alcohol, drugs. She lives in [place]. Temperature currently is 100.2 this relatively new finding, pulse is in the low 100s, blood pressure 104/70, oxygen 98%.General: She is alert in no acute distress, conversing with her friend. HEENT: Is no scleral icterus. No cervical mass. Cardiovascular: Normal rate low- grade tachycardia . Pulmonary: No increased work of breathing. Abdomen: Is very soft. She is nontender in the right upper quadrant to deep palpation. Integument: Warm dry without jaundice. Psychiatric: Appropriate affect . Neurologic: No gross deficits . Lymphatic: No cervical adenopathy. Peripheral vascular: No lower extremity edema. LAB: White count 7, hematocrit 31. Her CO2 still 19, creatinine 0.6, glucose has been as high as 223. LFTs are normal. Lipase is normal. Urinalysis positive for nitrites. I reviewed her ultrasound of her abdomen shows cholelithiasis and possible thickening of the gallbladder wall and bile duct is normal caliber. ASSESSMENT AND PLAN: This is a 53-year-old female with gallstones. Unclear if this symptom was related to this or just purely after being treated for diabetic ketoacidosis, seems to be tolerating clear liquids now and her abdominal exams are benign. She does have UTI on urinalysis. I have examined her IV sites I do not see evidence of phlebitis and she has no lower extremity edema. I would recommend initiation antibiotics. Ideally we would allow her to longer interval from her recent DKA prior to undergoing general anesthetic cholecystectomy for fear making this worse and I think based off her exam we can safely do this. She is on Zosyn. Will continue clear liquids and follow her closely. If she were to have recurrent episodes it may be reasonable to perform cholecystectomy for symptomatic gallstones but hopefully an elective situation when she is well controlled from a diabetic standpoint. Will follow closely going forward but no plans for urgent surgical intervention this junction . cc: Dedra Munoz MD MTDD
[2019-06-01] MEDS ORDERED: MIRALAX PO ONE (22:05)
[2019-06-02] MEDS: HUMULIN R SUBQ SCH ×7 (00:02→23:29)
[2019-06-02] MEDS: ZOSYN 3.375 GM in NS 50 ML IV SCH ×4 (02:59→20:58)
[2019-06-02 05:52] LABS: HEMATOCRIT 29.7 % (37.0-47.0); HEMOGLOBIN 9.8 g/dL (12.0-16.0); MCH 23.7 PG (27-31); MCV 71.9 FL (81-99); MPV 10.2 FL (7.4-10.4); RBC 4.13 XMIL (4.2-5.4); RDW 14.3 % (11.5-14.5); WBC 12.58 X1000 (4.8-10.8)
[2019-06-02 06:02] LABS: ALB/GLOB RATIO 1.2; ALBUMIN 2.9 g/dL (3.5-5.0); DIRECT BILIRUBIN 0.3 mg/dL (0.00-0.20); PHOSPHORUS 2.5 mg/dL (2.7-4.5); TOTAL BILIRUBIN 0.92 mg/dL (0.20-1.00); TOTAL PROTEIN 5.3 g/dL (6.3-8.3)
[2019-06-02 06:04] LABS: AGAP 14; BUN 4 mg/dL (8-22); CALCIUM 8.2 mg/dL (8.8-10.2); CHLORIDE 101 mmol/L (98-107); COSMO 279; CREATININE 0.6 mg/dL (0.5-0.9); ESTIMATED GFR > 60; GLUCOSE 249 mg/dL (70-104); POTASSIUM 3.9 mmol/L (3.5-5.1); SODIUM 137 mmol/L (136-145); TCO2 22 mmol/L (25-35)
[2019-06-02] MEDS ORDERED: SODIUM PHOSPHATE 30 MMOL in NS 250 ML IV ONE (06:09)
[2019-06-02] MEDS: HEPARIN SUBQ SCH ×2 (08:17→20:58)
[2019-06-02] MEDS: PRINIVIL PO SCH (08:17)
[2019-06-02] MEDS: HUMULIN 70/30 SUBQ SCH ×2 (08:18→21:04)
[2019-06-02 10:39] LABS: ALLEN TEST NO; BLOOD TYPE ARTERIAL; HCO3-(ACT) 24.9 mmoll (20.0-26.0); METHB 1.3 % (0.0-1.5); MODALITY ROOM AIR; O2(CT) 12.7 mL/dL (15.0-23.0); O2HB 93.4 % (95.0-99.0); PCO2(98.6) 32 mmHg (35-45); PO2(98.6) 65 mmHg (60-100); SAMPLE BLOOD; SAO2 96.6 % (95.0-100.0); THB 9.6 g/dL (11.5-17.4); pH(98.6) 7.47 (7.35-7.45)
[2019-06-02 10:50] LABS: INR 1.14; PROTIME 14.8 Seconds (11.0-16.0)
[2019-06-02 10:52] LABS: PTT 51.8 Seconds (22.3-41.8)
[2019-06-02] MEDS ORDERED: VANCOMYCIN IV PER PHARMACY MISC SCH (11:00)
[2019-06-02] MEDS ORDERED: VANCOMYCIN 1,750 MG in NS 250 ML IV ONE (12:00)
[2019-06-02] MEDS ORDERED: NS 1,000 ML IV ONE (12:13)
[2019-06-02] MEDS: NS 1,000 ML IV SCH ×2 (13:48→20:56)
--- NOTE | 2019-06-02 14:22 | PROGRESS NOTE ---
DATE: 06/02/2019 SUBJECTIVE: The patient states that she still feels weak. She complains of pain in the right upper quadrant. She states if she lays still she does not feel the pain. However, if she starts to get up, the pain is there. OBJECTIVE: Vital Signs: Temperature 98.9 degrees, blood pressure 93/64, heart rate 92, respirations 16, O2 saturation is 100% on room air. Intake 2.4 L. Output 1.1 L. General: This is an elderly female lying in bed, in no acute distress. Heart: S1, S2 normal. Tachycardic. Lungs: Clear to auscultation bilaterally. Abdomen: Positive bowel sounds. Soft. Positive for right upper quadrant tenderness. Extremities: No edema. No cyanosis. Neurologic: The patient is alert and oriented x4. LABS: White blood cell count 12, hemoglobin 9.8, hematocrit 29, platelets 288,000. Sodium 137, potassium 3.9, chloride 101, CO2 22, BUN 4, creatinine 0.6, glucose 249, phosphorus 2.5, calcium 8.2, AST 30, ALT 18, alkaline phosphatase 87. Troponin less than 0.01. ASSESSMENT AND PLAN: 1. Symptomatic cholelithiasis vs acute cholecystitis. Continue with antibiotics. The patient is currently on a clear liquid diet. General Surgery is following. 2. Sepsis. Continue on IV fluids and antibiotic therapy. 3. Urinary tract infection. The urine culture is growing gram negative rods. Continue on Zosyn. 4. Leukocytosis. Continue with antibiotic therapy. Will follow up on the cultures. 5. Diabetic ketoacidosis. Resolved. 6. Poorly controlled insulin-dependent diabetes mellitus. Continue with long- acting insulin plus sliding scale insulin. 7. Hypophosphatemia. Replace phosphorus. 8. Deep vein thrombosis prophylaxis. Continue on heparin. cc: MD KADY Zafar
--- NOTE | 2019-06-02 14:43 | EKG Report ---
Test Performed on : 06/02/2019 11:37:17 AM Test Reason : tachycardia/possible sepsis Blood Pressure : / mmHG Vent. Rate : 096 BPM Atrial Rate : 096 BPM P-R Int : 140 ms QRS Dur : 076 ms QT Int : 344 ms P-R-T Axes : 044 -07 003 degrees QTc Int : 434 ms Normal sinus rhythm. Inferior infarct , age undetermined Possible Anterolateral infarct , age undetermined Abnormal ECG Confirmed by Fatuma LOOMIS, Eron ([id number]) on 06/04/2019 8:53:48 AM
--- NOTE | 2019-06-02 15:07 | GENERAL SURGERY PROGRESS NOTE ---
DATE: 06/02/2019 SUBJECTIVE: No abdominal pain. No nausea or vomiting. She is tolerating clear liquids. OBJECTIVE: Vital Signs: No fevers. Pulse 92, blood pressure was 106/69 this morning, oxygen saturation 90%. General: She is alert. HEENT: There is no scleral icterus. Skin: No jaundice. Cardiovascular: Normal rate. Pulmonary: No increased work of breathing. Abdomen: Soft, nontender, nondistended. LABORATORY DATA: White count 12, hematocrit is 29. I reviewed her ABG. Her creatinine is 0.6. LFTs are overall stable. ASSESSMENT AND PLAN: This is a 53-year-old female, admitted with diabetic ketoacidosis. She developed abdominal pain. She was found to have gallstones. I have a low suspicion for clinically significant cholecystitis at this juncture. Would continue antibiotics, treatment of her urinary tract infection, and will follow her going forward. She may ultimately benefit from elective cholecystectomy, but not emergently. cc: Dedra Munoz MD
[2019-06-02] MEDS ORDERED: VANCOMYCIN 1,000 MG in NS 250 ML IV SCH (23:00)
[2019-06-02] MEDS ORDERED: NS 500 ML IV ONE (23:41)
[2019-06-03] MEDS: ZOSYN 3.375 GM in NS 50 ML IV SCH ×4 (01:16→20:13)
[2019-06-03] MEDS ORDERED: NS 1,000 ML IV ONE (03:07)
[2019-06-03] MEDS: HUMULIN R SUBQ SCH ×5 (04:30→20:12)
[2019-06-03 06:27] LABS: BASO# 0.02 X1000 (0.0-0.2); BASO% 0.2 % (0.0-0.8); EOS# 0.08 X1000 (0.0-0.7); EOS% 0.7 % (0.0-10.0); HEMATOCRIT 26.1 % (37.0-47.0); HEMOGLOBIN 8.3 g/dL (12.0-16.0); IMM GRAN# 0.04 X1000 (0.0-0.04); IMM GRAN% 0.3 % (0.0-0.5); LYMPH# 1.87 X1000 (1.2-3.4); LYMPH% 15.7 % (20.5-51.1); MCH 23.1 PG (27-31); MCHC 31.8 g/dL (33-37); MCV 72.7 FL (81-99); MONO# 1.15 X1000 (0.11-0.59); MONO% 9.6 % (1.7-9.3); MPV 10.4 FL (7.4-10.4); NEUT# 8.76 X1000 (1.4-6.5); NEUT% 73.5 % (42.2-75.2); PLT 325 X1000 (130-400); RBC 3.59 XMIL (4.2-5.4); WBC 11.92 X1000 (4.8-10.8)
[2019-06-03 06:37] LABS: AGAP 11; ALB/GLOB RATIO 0.8; ALBUMIN 2.5 g/dL (3.5-5.0); ALKALINE PHOSPHATASE 102 U/L (32-104); BUN 3 mg/dL (8-22); CALCIUM 7.8 mg/dL (8.8-10.2); CHLORIDE 107 mmol/L (98-107); COSMO 280; CREATININE 0.5 mg/dL (0.5-0.9); ESTIMATED GFR > 60; GLUCOSE 98 mg/dL (70-104); GOT 36 U/L (10-30); GPT 32 U/L (10-36); SODIUM 142 mmol/L (136-145); TCO2 24 mmol/L (25-35); TOTAL BILIRUBIN 0.82 mg/dL (0.20-1.00); TOTAL PROTEIN 5.6 g/dL (6.3-8.3)
[2019-06-03] MEDS: NS 1,000 ML IV SCH ×3 (06:47→19:56)
[2019-06-03 07:37] LABS: LYMPHS 16 % (21-51); MONO 10 % (1-9); SEGS 74 % (42-75)
[2019-06-03 07:38] LABS: ANISOCYTOSIS 2+; POLYCHROM 2+
[2019-06-03 07:41] LABS: MAGNESIUM 1.7 mg/dL (1.5-2.7); PHOSPHORUS 2.3 mg/dL (2.7-4.5)
[2019-06-03] MEDS ORDERED: POTASSIUM PHOSPHATE 50 MMOL in NS 250 ML IV ONE (07:42)
[2019-06-03] MEDS ORDERED: MAGNESIUM SULFATE 2 GM/S.W.I. 2 GM/50 ML IVPB IV ONE (07:42)
[2019-06-03] MEDS: HEPARIN SUBQ SCH ×2 (08:03→20:14)
[2019-06-03] MEDS: HUMULIN 70/30 SUBQ SCH ×2 (09:01→20:13)
--- NOTE | 2019-06-03 15:15 | PROGRESS NOTE ---
DATE: 06/03/2019 SUBJECTIVE: The patient states that she feels much better today. Her blood pressure dropped overnight, and she required a fluid bolus. She is currently on IV fluids. OBJECTIVE: Vital Signs: T-max 100 degrees, blood pressure 98/68, heart rate 89, respirations 21, O2 saturation 99% on room air. General: This is an overweight female sitting in bed in no acute distress. Heart: S1, S2. Normal. Tachycardic. Lungs: Equal air entry bilaterally. No wheezing. No rales. No rhonchi. Abdomen: Positive bowel sounds. Soft. Mild tenderness in the right upper quadrant. Extremities: No edema, no cyanosis, no calf tenderness. Neurologic: The patient is alert and oriented x3. LABS: White blood cell count 11, hemoglobin 8.3, hematocrit 26, platelets 325. Sodium 142, potassium 3, chloride 107, CO2 24. BUN 3, creatinine 0.5, glucose 98, magnesium 1.7, phosphorus 2.3. CULTURES: Urine culture grew out Klebsiella. ASSESSMENT AND PLAN: 1. Sepsis. Continue to treat the underlying urinary tract infection. The patient remains on Zosyn. 2. Symptomatic cholelithiasis versus acute cholecystitis. Continue with antibiotics and intravenous fluids. Management as per the general surgeon. 3. Urinary tract infection secondary to Klebsiella. Continue on Zosyn. 4. Leukocytosis. Slightly improved. Continue with intravenous Zosyn. 5. Diabetic ketoacidosis. Resolved. 6. Poorly controlled insulin-dependent diabetes mellitus. The patient's hemoglobin A1c is 15. We will continue with long-acting insulin plus sliding scale insulin. 7. Hypokalemia. We will replace patient's potassium. 8. Hypophosphatemia. We will replace patient's phosphorus. 9. Anemia. The H/H is slightly decreased. Continue to monitor closely. 10. Deep vein thrombosis prophylaxis. Continue on heparin. cc: Yelena Bush MD MTDD
[2019-06-04] MEDS: HUMULIN R SUBQ SCH ×6 (00:28→21:37)
[2019-06-04] MEDS: ZOSYN 3.375 GM in NS 50 ML IV SCH ×2 (02:10→09:00)
[2019-06-04 06:16] LABS: BASO# 0.02 X1000 (0.0-0.2); BASO% 0.2 % (0.0-0.8); EOS# 0.13 X1000 (0.0-0.7); EOS% 1.3 % (0.0-10.0); HEMATOCRIT 25.1 % (37.0-47.0); HEMOGLOBIN 7.8 g/dL (12.0-16.0); IMM GRAN# 0.05 X1000 (0.0-0.04); IMM GRAN% 0.5 % (0.0-0.5); LYMPH# 2.12 X1000 (1.2-3.4); LYMPH% 21.9 % (20.5-51.1); MCH 22.8 PG (27-31); MCHC 31.1 g/dL (33-37); MCV 73.4 FL (81-99); MONO# 1.03 X1000 (0.11-0.59); MONO% 10.7 % (1.7-9.3); MPV 10.6 FL (7.4-10.4); NEUT# 6.32 X1000 (1.4-6.5); NEUT% 65.4 % (42.2-75.2); PLT 340 X1000 (130-400); RBC 3.42 XMIL (4.2-5.4); WBC 9.67 X1000 (4.8-10.8)
[2019-06-04] MEDS: NS 1,000 ML IV SCH (06:35)
[2019-06-04 06:41] LABS: AGAP 13; ALB/GLOB RATIO 0.8; ALBUMIN 2.4 g/dL (3.5-5.0); ALKALINE PHOSPHATASE 114 U/L (32-104); BUN 3 mg/dL (8-22); CALCIUM 7.5 mg/dL (8.8-10.2); CHLORIDE 104 mmol/L (98-107); COSMO 277; CREATININE 0.6 mg/dL (0.5-0.9); ESTIMATED GFR > 60; GLUCOSE 179 mg/dL (70-104); GOT 20 U/L (10-30); GPT 25 U/L (10-36); MAGNESIUM 1.9 mg/dL (1.5-2.7); PHOSPHORUS 2.3 mg/dL (2.7-4.5); POTASSIUM 3.5 mmol/L (3.5-5.1); SODIUM 138 mmol/L (136-145); TCO2 21 mmol/L (25-35); TOTAL BILIRUBIN 0.77 mg/dL (0.20-1.00); TOTAL PROTEIN 5.3 g/dL (6.3-8.3)
[2019-06-04] MEDS: HEPARIN SUBQ SCH (09:31)
[2019-06-04] MEDS: HUMULIN 70/30 SUBQ SCH ×2 (09:33→21:39)
[2019-06-04] MEDS ORDERED: FLAGYL ONE ×3 (10:27→12:19)
--- NOTE | 2019-06-04 10:35 | PROGRESS NOTE ---
DATE: 06/04/2019 INTERVAL HISTORY: No acute events overnight. SUBJECTIVE: Ms. Matias is denying any new complaints. She states she wants to have a proper food, so I changed her diet to diabetic. She denies any chest pain, shortness of breath, nausea, vomiting, or abdominal pain except occasional discomfort in the right upper quadrant. She denies diarrhea, constipation, or urinary discomfort. VITALS: Temperature 98.5 degrees, pulse 80, respiratory rate 14, blood pressure 160/90, saturating 96% room air. PHYSICAL EXAMINATION: General: No pallor, cyanosis, clubbing, or icterus. Oral cavity is moist. Air entry bilaterally equal. No wheeze, rhonchi, crackles. S1, S2 normal. Regular rhythm. No murmur, rub, or gallop. Abdomen is soft. Mild tenderness in right upper quadrant without guarding, rebound or rigidity. Active bowel sounds. No lower extremity edema. She is alert and oriented x3. LABS: Suggestive of no leukocytosis, microcytic anemia, normal platelet count. She does have resolution of her hypokalemia. Her kidney function is normal. ASSESSMENT AND PLAN: 1. Sepsis on presentation, could be related to Klebsiella urinary tract infection. Her blood culture did not have any growth. I will continue her on antibiotics which I will downgrade today to ceftriaxone and metronidazole. Her vital signs and blood pressure have been unremarkable. 2. Suspected symptomatic cholelithiasis versus acute cholecystitis. Surgical team does not think patient would need any acute intervention at the moment. She has been tolerating diet well. She may need elective cholecystectomy outpatient. I will advance her diet to diabetic. 3. Acute cystitis due to Klebsiella. Continue antibiotics. 4. Diabetic ketoacidosis on presentation, now resolved. Her hemoglobin A1c was more than 15. She will need insulin at the time of discharge. 5. Hypokalemia, currently being repleted. 6. Microcytic anemia. I advised her to get age-appropriate cancer screening and iron panel outpatient. 7. Deep venous thrombosis prophylaxis, heparin subcutaneous. DISPOSITION: I will monitor patient on diabetic diet for 24 hours. If she is able to tolerate that, my plan is to discharge her home tomorrow with outpatient surgery followup. She is in agreement. All of her questions have been answered. cc: Vic López MD
[2019-06-04] MEDS: ROCEPHIN 1 GM in NS 50 ML IV SCH (10:45)
[2019-06-04] MEDS: KLOR-CON PO SCH ×2 (10:45→13:19)
[2019-06-04] MEDS: FLAGYL PO SCH ×2 (12:16→21:38)
[2019-06-05] MEDS: HUMULIN R SUBQ SCH ×2 (02:35→05:32)
[2019-06-05] MEDS: HEPARIN SUBQ SCH ×2 (02:36→09:18)
[2019-06-05] MEDS: FLAGYL PO SCH (05:33)
[2019-06-05 08:04] VITALS: BP 132/83
[2019-06-05] MEDS: ROCEPHIN 1 GM in NS 50 ML IV SCH (09:18)
[2019-06-05] MEDS: HUMULIN 70/30 SUBQ SCH (09:18)
--- NOTE | 2019-06-06 10:27 | DISCHARGE SUMMARY ---
ADMISSION DATE: 05/29/2019 DISCHARGE DATE: 06/05/2019 DISCHARGE DISPOSITION: Home. DISCHARGE CONDITION: Hemodynamically stable. DISCHARGE INSTRUCTIONS: She has been provided instructions and education about using insulin. I provided her instructions about hypoglycemia, need for checking her blood sugars, keeping glucose tablets, need for following up with primary care doctor, adjusting insulin dose and following up with a surgeon doctor for possible gallbladder removal in the future. All of her questions have been answered. DISCHARGE DIAGNOSES: 1. Diabetic ketoacidosis due to noncompliance with diabetic medications. 2. Acute kidney injury. 3. Lactic acidosis. 4. Essential hypertension. 5. Urinary tract infection due to Klebsiella pneumoniae. 6. Noncompliance with medication. 7. Microcytic anemia OTHER DIAGNOSES: 1. Previous history of insulin-dependent diabetes mellitus, not taking any medication. 2. Previous history of essential hypertension. 3. History of hyperlipidemia. DISCHARGE MEDICATIONS: 1. Insulin Humulin 70/30, 40 units subcutaneously b.i.d. 2. She has also been provided prescription of glucometer, blood glucose test strips, pen needles of about 1 month supply with 1 refill. VITAL SIGNS: At the time of discharge, temperature 98.4 degrees, pulse 81, respiratory rate 19, blood pressure 130/80, saturating 96% on room air. PHYSICAL EXAMINATION: General: Not in acute distress. HEENT: Oral cavity is moist. She has mild hirsutism. Lungs: Air entry bilaterally equal. No wheeze, rhonchi, crackles. Cardiovascular: S1, S2 normal. No murmur, rub or gallop. Abdomen: Soft, nontender. Extremities: No lower extremity edema. Neurologic: She is alert and oriented x3. She was able to come out of bed to go to the bathroom by herself. LABORATORY DATA: At the time of discharge, WBC 9000, hemoglobin 7.8, platelet count of 340,000. She had a BUN of 3, creatinine 0.6, blood glucose of 126. MICROBIOLOGY: Urine culture has Klebsiella pneumoniae. IMAGING: During hospital admission, an abdominal ultrasound on June 01 had cholelithiasis, mildly thickened gallbladder quiroz, possible small amount of pericholecystic fluid. The bile duct was 4 mm in size. A chest x-ray on presentation did not have any acute pathology. She was provided instructions about following up with regular doctor, getting a repeat blood count done as well as need for age-appropriate cancer screening in the future. HOSPITAL COURSE SUMMARY: Ms. Matias is a 53-year-old lady who presented on 05/29/2019 with chief complaints of feeling short of breath. She had a prior history of insulin- dependent diabetes mellitus, hypertension, hyperlipidemia. However, she did not take any of her medications since the past 1 year. In the emergency room, she was found to have Kussamaul's breathing, hyperglycemia with blood glucose of over 500 and pH of 6.9. She also had acidosis and elevated anion gap of 34 on presentation. She was diagnosed with DKA, was started on intravenous insulin drip and was admitted to ICU. On presentation, she also had lactic acidosis and acute kidney injury. With intravenous fluid resuscitation and insulin, her condition improved. Her urinalysis had detected Klebsiella pneumoniae, so she was also started on intravenous antibiotics. While inside the hospital, she complained of some abdominal discomfort and has had mild tenderness in right upper quadrant. Ultrasound had detected cholelithiasis. However, surgical team did not think it was acute cholecystitis. At the time of discharge, she was eating her diabetic diet without any nausea and vomiting, so it was decided to discharge her and have outpatient surgery followup as per surgeon doctor's recommendation. She had completed course of intravenous antibiotics at the time of discharge. TIME SPENT: More than 30 minutes of time was spent in preparing this discharge summary. Patient was counseled about getting follow-up blood test, blood glucose, regular followup with her regular provider and a surgeon doctor. All of her questions were satisfactorily answered. cc: MD KADY Daniels
== END 2019-06-05 14:01 | disposition home or self-care (01) | DRG 638 ==
LOC: P.ED 08:58 → SUATTDRO 08:59 → ICU 08:59 → 1N 05-31 13:49 → 2N 06-02 11:52
PROVIDERS: ATTEND Internal Medicine